=== PATIENT | male | born 2000 | race Two or more races ===

== ENCOUNTER 2024-12-04 01:17 | Inpatient (IN) | payer SELFPAY ==
[~2024-12-04] VITALS: Ht 170.2 cm; Wt 84.1 kg
--- NOTE | 2024-12-04 01:26 | ED.PDOC ---
GI ASSESSMENT HPI Comments 24-year-old male with a past medical history of DM presents to the ED for the chief complaint of 2x episodes of hematemesis, with the associated nausea. Pt states that he was drinking, and notes his last drink was at approx 2000, and has since noted of light red tinged emesis. Patient states his symptoms started at approximately 2200, with no alleviating factors at this time. Pt is A&Ox4 and Ambulatory. Pt denies any /D, Dysuria, Hematuria, SAWANT, Blurry Vision, or any other associated symptoms, or modifiers at this time. PHYSICAL EXAM: General: Awake, alert and oriented. moderate acute distress. Skin: Skin in warm, dry and intact. Appropriate color for ethnicity. HEENT: The head is normocephalic and atraumatic. Conjunctivae are clear without exudates or hemorrhage. Sclera is non-icteric. EOM are intact. No signs of nystagmus. Eyelids are normal in appearance without swelling or lesions. Oral mucosa is pink and moist Neck: The neck is supple with normal range of motion. No JVD. Cardiac: Heart rate and rhythm are normal. No murmurs, gallops, or rubs are auscultated. Respiratory: No signs of respiratory distress. Lung sounds are clear in all lobes bilaterally without rales, rhonchi, or wheezes. Abdominal: Abdomen is soft, non-tender without distention, guarding or rigidity. Bowel sounds are present and normoactive in all four quadrants. Extremities: Upper and lower extremities are atraumatic in appearance without deformity or edema. Neurological: The patient is awake, alert and oriented to person, place, and time with normal speech. Speech is clear. There is no facial asymmetry. Psychiatric: Appropriate mood and affect. Good judgement and insight. REVIEW OF SYSTEMS: General: No fever, no chills, or fatigue HEENT: No sore throat, no earache, no congestion, no neck pain. Cardiac: No chest pain. No palpitations. Lungs: No shortness of breath, no cough. GI: + nausea, + hematemesis, no diarrhea, no constipation, + abdominal pain : No dysuria, frequency, or urgency. No hematuria. Musculoskeletal: No joint pain , no joint swelling, no extremity edema. Skin: No rash, no itching. Neuro: No headache, no dizziness, no weakness Chief Complaint: GI Bleed Time Seen by MD: 01:23 Reviewed Notes: Nurses Notes, Medications, Allergies Allergies: Coded Allergies: NO KNOWN ALLERGIES (Unverified , 12/04/24) Home Meds Reported Medications Omeprazole (Gnp Omeprazole) 20 Mg Tab, 1 TAB PO DAILY, #90 TAB 1 Refill 12/04/24 Information Source: Patient Mode of Arrival: Ambulatory Timing: Hours Duration: Since onset, Hours Prehospital treatment: None Quality: Aching Vomitus: Bloody, Bright Red Bood Stool: Normal Severity: Moderate Recent: None Recent Hx of: None Pain Location: Diffuse Modifying Factors: Exertion Associated sign and symptoms: Nausea, Vomiting, Abdominal Pain Past Medical History PAST MEDICAL HISTORY: Denies Surgical History: Denies all surgeries Family History Family History: Unknown Social History Smoker: Non-Smoker Alcohol: Denies ETOH Use Drugs: Denies Drug Use Lives In: Home Was a procedure done? Was a procedure done?: No GI differential Dx Differential Diagnosis: Appendicitis, Aortic dissection, Bowel Obstruction, Cholangitis, Cholecystitis, Constipation, Diverticular disease, Dysmenorrhea, Gastritis/PUD, Gastroenteritis, GI hemorrhage, Inflammatory BD, Ischemic Bowel, Pancreatitis, Trauma intraabdominal, Urinary Obstruction, UTI, Urolithiasis, Dehydration, Diabetes/ DKA, Drug toxicity, Electrolyte Imbalance, Food Poisoning, Bacterial, Parasitic, Impaction, Ischemic Bowel, Mass, Anemia, Esophageal Varicies, Stress Ulcer, Kidney Stone X-Ray, Labs, Meds, VS Vital Signs Date Time Temp Pulse Resp B/P (MAP) Pulse Ox O2 Delivery O2 Flow Rate FiO2 12/04/24 03:54 114 16 98 Room Air* 0 21 12/04/24 03:31 114 16 98 Room Air 12/04/24 03:31 97.7 114 16 142/80 (100) 98 97.7 12/04/24 01:19 98.2 100 18 142/74 97 98.2 Lab Test 12/04/24 05:27 12/04/24 04:14 12/04/24 03:55 12/04/24 01:49 Range/Units Troponin I High Sensitivity < 3 L </=54 ng/L Urine Color Light-yellow Yellow Urine Clarity Clear Clear Urine pH 6.5 5.0-9.0 Urine Specific Floyd > 1.050 H 1.001-1.035 Urine Protein Negative Negative Urine Ketones 1+ H Negative Urine Blood Negative Negative /uL Urine Nitrite Negative Negative Urine Bilirubin Negative Negative Urine Urobilinogen Normal Negative mg/dL Urine Leukocyte Esterase Negative Negative /uL Urine RBC 4 0 - 3 /hpf Urine Microscopic WBC < 1 0-3 /HPF Urine Squamous Epithelial Cells Few <5 /hpf Urine Bacteria None seen None Seen /hpf Urine Glucose Normal Normal mg/dL Lactic Acid Level 5.5 *H 4.6 *H 0.4-2.0 mmol/L White Blood Count 6.4 4.4-10.8 10^3/uL Red Blood Count 5.30 4.5-5.90 10^6/uL Hemoglobin 16.4 13.5-17.5 g/dL Hematocrit 47.2 41.0-53.0 % Mean Corpuscular Volume 89.0 80.0-100.0 fL Mean Corpuscular Hemoglobin 30.9 28.0-32.0 pg Mean Corpuscular Hemoglobin Concent 34.7 32.0-36.0 g/dL Red Cell Distribution Width 15.4 H 11.8-14.3 % Platelet Count 271 140-450 10^3/uL Mean Platelet Volume 8.4 6.9-10.8 fL Neutrophils (%) (Auto) 59.1 37.0-80.0 % Lymphocytes (%) (Auto) 34.2 10.0-50.0 % Monocytes (%) (Auto) 5.8 0.0-12.0 % Eosinophils (%) (Auto) 0.4 0.0-7.0 % Basophils (%) (Auto) 0.5 0.0-2.0 % Neutrophils # (Auto) 3.8 1.6-8.6 10 ^3/uL Lymphocytes # (Auto) 2.2 0.4-5.4 10 ^3/uL Monocytes # (Auto) 0.4 0-1.3 10 ^3/uL Eosinophils # (Auto) 0 0-0.8 10 ^3/uL Basophils # (Auto) 0 0-0.2 10 ^3/uL Nucleated Red Blood Cells 0.2 % Sodium Level 144 136-145 mmol/L Potassium Level 3.5 3.5-5.1 mmol/L Chloride Level 105 98-107 mmol/L Carbon Dioxide Level 23 20-31 mmol/L Anion Gap 16 H 5-15 Blood Urea Nitrogen 9 9-23 mg/dL Creatinine 0.80 0.700-1.30 mg/dL Glomerular Filtration Rate Calc 126 >90 mL/min BUN/Creatinine Ratio 11.3 10.0-20.0 Serum Glucose 105 74-106 mg/dL Calcium Level 8.7 8.7-10.4 mg/dL Total Bilirubin 0.5 0.2-1.0 mg/dL Aspartate Amino Transferase (AST) 81 H 13-40 U/L Alanine Aminotransferase (ALT) 186 H 7-40 U/L Alkaline Phosphatase 88 46-116 U/L Total Protein 7.0 5.7-8.2 g/dL Albumin 4.7 3.2-4.8 g/dL Current Medications Medications (Trade) Dose Ordered Sig/Zena Route Start Time Stop Time Status Last Admin Sodium Chloride 1,000 ml @ 1,000 mls/hr Q1H ONCE IV 12/04/24 03:00 12/04/24 03:59 DC 12/04/24 03:18 Sodium Chloride 1,000 ml @ 1,000 mls/hr Q1H ONCE IV 12/04/24 05:00 12/04/24 05:59 DC 12/04/24 05:14 Piperacillin Sod/ Tazobactam Sod 100 ml @ 100 mls/hr ONCE ONCE IV 12/04/24 05:00 12/04/24 05:59 DC 12/04/24 05:32 Hydroxyzine Pamoate (Vistaril Oral) 50 mg ONCE ONCE PO 12/04/24 05:00 12/04/24 05:01 DC 12/04/24 05:32 Time of 1ST Reevaluation: 01:54 Reevaluation 1ST: Unchanged Patient Education/Counseling: Diagnosis, Treatment, Need For Follow Up Family Education/Counseling: Diagnosis, Treatment, Need For Follow Up SEPSIS Sepsis Screen Physician Orders Stool Occult Blood (12/04/24 01:43) Ct Ab Pel With Iv Con Only (12/04/24 02:56) Blood Culture (12/04/24 04:51) Chest Xray 1 View (12/04/24 04:51) Electrocardigram (12/04/24 04:51) Vital Signs Date Time Temp Pulse Resp B/P (MAP) Pulse Ox O2 Delivery O2 Flow Rate FiO2 12/04/24 03:54 114 16 98 Room Air* 0 21 12/04/24 03:31 114 16 98 Room Air 12/04/24 03:31 97.7 114 16 142/80 (100) 98 97.7 12/04/24 01:19 98.2 100 18 142/74 97 98.2 Laboratory Tests Test 12/04/24 01:49 12/04/24 03:55 Lactic Acid Level 4.6 mmol/L (0.4-2.0) *H 5.5 mmol/L (0.4-2.0) *H White Blood Count 6.4 10^3/uL (4.4-10.8) Departure 1 Departure Time of Disposition: 05:51 Impression: Primary Impression: Upper GI bleed Additional Impression: Lactic acidemia Disposition: ADMITTED INPATIENT Condition: Stable Comments MDM: [age] year old male presents to the emergency department with vomiting blood. Initial evaluated included thorough history, physical examination and appropriate diagnostic testing. Based on the clinical presentation and diagnostic findings, the patient appears to have upper GI bleed, lactic acidemia. Given the complexity of the case and need for further management patient is being admitted to the hospitalist service for further monitoring, treatment and evaluation. Risks, benefits and alternatives of admission and proposed interventions were discussed with the patient. Patient is in agreement with the plan. Extensive evaluation was performed in attempt to identify or rule out: (See differential diagnosis section) The following tests were ordered, and results were reviewed by me and discussed with patient: (See diagnostic results section) The following test were independently interpreted by me: N/A I reviewed and agreed with the following test results read by other providers: CT abdomen pelvis I reviewed the following notes from the pt's past medical encounters: N/A Additional information was gathered from interviewing the following independent historians: N/A Discussion of management or test interpretation with external physician/other qualified health foster care case manager: N/A Addressed an acute or chronic illness that poses a threat to life or bodily function: GI bleed, lactic acidemia Decision regarding hospitalization or escalation of hospital level of care: Risk and benefits of admission for further treatment of patient's condition was considered. Due to patient's current clinical condition, high risk of decline and poor outcome if discharged and need for further inpatient management and monitoring, patient will be admitted to the hospital. Drug therapy requiring intensive monitoring for toxicity: N/A Parenteral controlled substances: N/A Decision regarding elective major surgery with identified patient or procedure risk factors: N/A Decision regarding emergency major surgery: N/A Decision not to resuscitate or to de-escalate care because of poor prognosis: N/A Diagnosis or treatment significantly limited by social determinants of health: N/A Critical Care Note Critical Care Time?: No Stability Stability form required: No Heart Score Heart Score: Heart Score Response (Comments) Value History N/A 0 EKG N/A 0 Age N/A 0 Risk Factors N/A 0 Troponin N/A 0 Total 0 I personally scribed for MARTINA CLAYTON MD ([email or web address]) on 12/04/24 at 01:26. Electronically submitted by Rafa Wilson ([email or web address]). I personally scribed for MARTINA CLAYTON MD ([email or web address]) on 12/04/24 at 01:29. Electronically submitted by Rafa Wilson ([email or web address]). I personally scribed for MARTINA CLAYTON MD ([email or web address]) on 12/04/24 at 01:33. Electronically submitted by Rafa Wilson ([email or web address]). MARTINA CLAYTON MD Dec 04, 2024 01:26
[2024-12-04] MEDS: PANTOPRAZOLE 40 MG/10 ML VIAL INJ IV ONE ×2 (02:17→07:36)
[2024-12-04 02:28] LABS: Albumin 4.7 g/dL (3.2-4.8); Alkaline Phosphatase 88 U/L (46-116); Anion Gap 16 (5-15); BUN/Creatinine Ratio 11.3 (10.0-20.0); Calcium 8.7 mg/dL (8.7-10.4); Carbon Dioxide 23 mmol/L (20-31); Chloride 105 mmol/L (98-107); Glucose 105 mg/dL (74-106); Sodium 144 mmol/L (136-145); Total Protein 7.0 g/dL (5.7-8.2)
[2024-12-04 02:29] LABS: Bilirubin, Total 0.5 mg/dL (0.2-1.0)
[2024-12-04 02:55] LABS: Alanine Aminotransferase 186 U/L (7-40); Blood Urea Nitrogen 9 mg/dL (9-23); Lactic Acid w/Reflex 4.6 mmol/L (0.4-2.0); Potassium 3.5 mmol/L (3.5-5.1)
[2024-12-04 03:05] LABS: Hematocrit 47.2 % (41.0-53.0); Hemoglobin 16.4 g/dL (13.5-17.5); Mean Corpuscular Hemoglobin 30.9 pg (28.0-32.0); Mean Corpuscular Volume 89.0 fL (80.0-100.0); Nucleated Red Blood Cells % 0.2 %
[2024-12-04] MEDS: SODIUM CHLORIDE 0.9% 1,000 ML IV ONE ×5 (03:18→08:34)
[2024-12-04] MEDS: IOHEXOL 300 MG/ML 100ML BOTTLE IJ ONE (03:43)
[2024-12-04] MEDS: ONDANSETRON HCL 4 MG/2 ML VIAL IV ONE (03:48)
[2024-12-04 03:54] VITALS: PULSE 114; RESP 16; O2SAT 98
--- NOTE | 2024-12-04 03:59 | DVH ---
Exam: CT CT AB PEL WITH IV CON ONLY History: Hemetemesis, epigastric abdominal pain Comparison Study: None Contrast: 100 cc Omnipaque 300 TECHNIQUE: CT imaging of the abdomen and pelvis was obtained following the administration of intraven ous contrast. Coronal and sagittal reformatted images were reviewed. All CT scans at this medical facility are performed using dose modulation techniques as appropriate t o a performed exam including the following: Automated exposure control was utilized; adjustment of th e MA and/or KV according to patient size; and use of iterative reconstruction technique. Radiation Dose Information: CT Dose: CTDI volume is 10.55 mGy. Dose-length product is 3.92 mGy*cm FINDINGS: Imaged portions of the lung bases appear unremarkable. There is a small hiatal hernia. There is diff use hepatic steatosis. Gallbladder, spleen, and adrenal glands appear unremarkable. The pancreas appe ars unremarkable. Kidneys enhance symmetrically without hydronephrosis. The appendix appears normal. No evidence of bowel obstruction or focal bowel wall thickening. No free fluid, free air, or adenopa thy. No suspicious osseous lesion. IMPRESSION: 1. No acute abnormality in the abdomen or pelvis. 2. Hepatic steatosis 3. Small hiatal hernia
[2024-12-04 04:44] LABS: Urine Protein, UAD Negative (Negative)
--- NOTE | 2024-12-04 05:13 | DVH ---
CHEST RADIOGRAPH Indication: epigastric pain Technique: Single frontal view of the chest was obtained COMPARISON: None FINDINGS: Lines and Tubes: None Lungs: Clear Pleura: No effusion. No pneumothorax. Cardiomediastinal contours: Unremarkable Bones: Unremarkable IMPRESSION: No acute disease.
[2024-12-04] MEDS: hydrOXYzine 25 MG TAB or CAP PO ONE (05:32)
[2024-12-04] MEDS: PIPERACILLIN-TAZOB 3.375GM 100 ML IV ONE (05:32)
--- NOTE | 2024-12-04 06:41 | DVHHP2 ---
History of Present Illness Reason for Visit: abd pain and gi bleed History of Present Illness 24-year-old male past medical history diabetes not on medication no surgical history chief complaint patient is states he was vomiting blood last night yesterday around 10:00 p.m. he denies any clots with the vomiting he said he had one episode of vomiting he does admit to drinking alcohol he states his last drink was at 8:00 p.m. last night but patient is not fully on his with his alcohol use he also states he had did some meth in the past last time he did not that was seven months ago but very guarded and not honest about usage patient states epigastric pain that is like a burning sensation no tearing or ripping sensation he denies any fever no chest pain no shortness with the breath when evaluating patient's labs and imaging from ED looks like Vistaril was given Zosyn normal saline Protonix chest x-ray was unremarkable CT scan of the abdomen pelvis was negative showed hepatic steatosis CBC was unremarkable when stable hemoglobin lactate was 6.6 now down to 5.5 AST was 81 ALT was 186 urine shows some ketones with these findings we will admit and ask for GI evaluation for acute upper GI bleed Past Medical History See HPI above Past Surgical History See HPI above Family History Reviewed, non-contributory to the management of this case. Past Social History Patient guarded about his history of alcohol use and drug use states last time drank was last night around 8:00 p.m. and last saw did meth was seven months ago denies smoking Review of Systems Constitutional: No: Fever, Chills, Sweats, Weakness, Malaise, Other Eyes: No: Pain, Vision change, Conjunctivae inflammation, Eyelid inflammation, Other, Redness ENT: No: Ear pain, Ear discharge, Nose pain, Nose discharge, Nose congestion, Mouth pain, Mouth swelling, Throat pain, Throat swelling, Other Respiratory: No: Cough, Dry, Shortness of breath, SOB with excertion, Wheezing, Hemoptysis, Pleuritic Pain, Sputum, Wheezing, Other Cardiovascular: No: Chest Pain, Palpitations, Orthopnea, Paroxysmal Noc. Dyspnea, Edema, Lt Headedness, Other Gastrointestinal: Nausea, Vomiting, Abdominal Pain, Hematochezia; No: Diarrhea, Constipation, Melena, Other Genitourinary: No Dysuria, No Frequency, No Incontinence, No Hematuria, No Retention, No Other Musculoskeletal: No: other, neck pain, shoulder pain, arm pain, back pain, hand pain, leg pain, foot pain Skin: No: Rash, Lesions, Jaundice, Bruising, Other Neurological: No: Weakness, Numbness, Incoordination, Change in speech, Confusion, Seizures, Other Allergies: Coded Allergies: NO KNOWN ALLERGIES (Unverified , 12/04/24) Exam Vital Signs Vital Signs Date Time Temp Pulse Resp B/P (MAP) Pulse Ox O2 Delivery O2 Flow Rate FiO2 12/04/24 03:54 114 16 98 Room Air* 0 21 12/04/24 03:31 97.7 142/80 (100) 97.7 General Appearance: Alert, Oriented X3, Cooperative, No acute distress HEENT: Atraumatic, PERRLA, EOMI, Mucous membr. moist/pink Respiratory: Clear to auscultation, Normal air movement Cardiovascular: Regular rate, Normal S1, Normal S2, No murmurs Abdominal: Normal bowel sounds, Soft, No tenderness, No hepatospenomegaly, No masses Extremities: No clubbing, No cyanosis, No edema, Normal pulses, No tenderness/swelling Skin: No rashes, No breakdown, No significant lesion Neuro: Normal gait, Normal speech, Strength at 5/5 X4 ext, Normal tone, Sensation intact, Cranial nerves 3-12 NL Psych/Mental Status: Mental status NL, Mood NL Labs/Xrays CT scan abdomen pelvis shows hepatic steatosis I reviewed labs, imaging CT scan abdomen pelvis, EKG and all diagnostic studies on this patient from ED records and the medical chart Labs Test 12/04/24 05:27 12/04/24 04:14 12/04/24 03:55 12/04/24 01:49 Range/Units Troponin I High Sensitivity < 3 L </=54 ng/L Urine Color Light-yellow Yellow Urine Clarity Clear Clear Urine pH 6.5 5.0-9.0 Urine Specific Barry > 1.050 H 1.001-1.035 Urine Protein Negative Negative Urine Ketones 1+ H Negative Urine Blood Negative Negative /uL Urine Nitrite Negative Negative Urine Bilirubin Negative Negative Urine Urobilinogen Normal Negative mg/dL Urine Leukocyte Esterase Negative Negative /uL Urine RBC 4 0 - 3 /hpf Urine Microscopic WBC < 1 0-3 /HPF Urine Squamous Epithelial Cells Few <5 /hpf Urine Bacteria None seen None Seen /hpf Urine Glucose Normal Normal mg/dL Lactic Acid Level 5.5 *H 0.4-2.0 mmol/L White Blood Count 6.4 4.4-10.8 10^3/uL Red Blood Count 5.30 4.5-5.90 10^6/uL Hemoglobin 16.4 13.5-17.5 g/dL Hematocrit 47.2 41.0-53.0 % Mean Corpuscular Volume 89.0 80.0-100.0 fL Mean Corpuscular Hemoglobin 30.9 28.0-32.0 pg Mean Corpuscular Hemoglobin Concent 34.7 32.0-36.0 g/dL Red Cell Distribution Width 15.4 H 11.8-14.3 % Platelet Count 271 140-450 10^3/uL Mean Platelet Volume 8.4 6.9-10.8 fL Neutrophils (%) (Auto) 59.1 37.0-80.0 % Lymphocytes (%) (Auto) 34.2 10.0-50.0 % Monocytes (%) (Auto) 5.8 0.0-12.0 % Eosinophils (%) (Auto) 0.4 0.0-7.0 % Basophils (%) (Auto) 0.5 0.0-2.0 % Neutrophils # (Auto) 3.8 1.6-8.6 10 ^3/uL Lymphocytes # (Auto) 2.2 0.4-5.4 10 ^3/uL Monocytes # (Auto) 0.4 0-1.3 10 ^3/uL Eosinophils # (Auto) 0 0-0.8 10 ^3/uL Basophils # (Auto) 0 0-0.2 10 ^3/uL Nucleated Red Blood Cells 0.2 % Sodium Level 144 136-145 mmol/L Potassium Level 3.5 3.5-5.1 mmol/L Chloride Level 105 98-107 mmol/L Carbon Dioxide Level 23 20-31 mmol/L Anion Gap 16 H 5-15 Blood Urea Nitrogen 9 9-23 mg/dL Creatinine 0.80 0.700-1.30 mg/dL Glomerular Filtration Rate Calc 126 >90 mL/min BUN/Creatinine Ratio 11.3 10.0-20.0 Serum Glucose 105 74-106 mg/dL Calcium Level 8.7 8.7-10.4 mg/dL Total Bilirubin 0.5 0.2-1.0 mg/dL Aspartate Amino Transferase (AST) 81 H 13-40 U/L Alanine Aminotransferase (ALT) 186 H 7-40 U/L Alkaline Phosphatase 88 46-116 U/L Total Protein 7.0 5.7-8.2 g/dL Albumin 4.7 3.2-4.8 g/dL SEPSIS Sepsis Screen Date sepsis recognized/suspect: Dec 04, 2024 Time Sepsis recognized/suspect: 332 Recent Procedure: No On Antibiotic Therapy: No Respiratory Rate >20: No Heart Rate >90: Yes Temp<36 C (96.8 F) or >38.3 C: No SBP <90 or MAP <65 mmHG: No New Acute Mental Status Change: No Is the patient on CPAP, BIPAP,: No Physician Orders Stool Occult Blood (12/04/24 01:43) Ct Ab Pel With Iv Con Only (12/04/24 02:56) Blood Culture (12/04/24 04:51) Urinalysis (12/04/24 04:51) Chest Xray 1 View (12/04/24 04:51) Electrocardigram (12/04/24 04:51) Sodium Chloride 0.9% (12/04/24 05:00) Vital Signs Date Time Temp Pulse Resp B/P (MAP) Pulse Ox O2 Delivery O2 Flow Rate FiO2 12/04/24 03:54 114 16 98 Room Air* 0 21 12/04/24 03:31 114 16 98 Room Air 12/04/24 03:31 97.7 114 16 142/80 (100) 98 97.7 12/04/24 01:19 98.2 100 18 142/74 97 98.2 Laboratory Tests Test 12/04/24 01:49 12/04/24 03:55 Lactic Acid Level 4.6 mmol/L (0.4-2.0) *H 5.5 mmol/L (0.4-2.0) *H White Blood Count 6.4 10^3/uL (4.4-10.8) Medications Medications Dose Ordered Sig/Zena Route Start Time Stop Time Status Last Admin Dose Admin Hydroxyzine Pamoate 50 mg ONCE ONCE PO 12/04/24 05:00 12/04/24 05:01 DC 12/04/24 05:32 50 MG Piperacillin Sod/ Tazobactam Sod 100 ml @ 100 mls/hr ONCE ONCE IV 12/04/24 05:00 12/04/24 05:59 DC 12/04/24 05:32 100 MLS/HR Sodium Chloride 1,000 ml @ 1,000 mls/hr Q1H ONCE IV 12/04/24 03:00 12/04/24 03:59 DC 12/04/24 03:18 1,000 MLS/HR Sodium Chloride 1,000 ml @ 1,000 mls/hr Q1H ONCE IV 12/04/24 05:00 12/04/24 05:59 DC 12/04/24 05:14 1,000 MLS/HR Assessment/Plan Assessment/Plan acute upper gi bleed with stable hemoglobin ordered us abd clr liquid diet for now ivf ordered protonix gi consult fu results monitor hemoglobin acute acholic keto acidosis related to alcohol use vs gi bleed hemoglobin stable cont iv hydration ordered bmp in am ordered repeat lactic ordered Ativan as needed acute etoh use ordered etoh level ordered Ativan as needed ordered Seizure precautions monitor for etoh withdrawal ordered banana bag pt states go to aa classess Encourage abstinence acute Intractable abdominal pain epigastric pain ordered Protonix morphine Zofran ordered abd us fu results Acute dehydration urine with ketones Continue IV fluids Acute transaminitis likely from etoh abuse vs hepatitic steatosis ordered us liver fu results avoid liver toxic drugs monitor for confusion type 2 dm monitor glucose fen/ppx clr liquid diet Protonix IV fluids SCDs no dvt ppx since pt is ambulatory and have gi bleed plan admit to medicine Plan discussed with: Patient Date of Service: Dec 04, 2024 Billing Provider: ARIANA PARK DNP Common Visit Codes: [id number] INP/OBS CARE (HIGH) ARIANA PARK DNP Dec 04, 2024 06:41
[2024-12-04] MEDS ORDERED: NITROGLYCERIN 0.4 MG SL TAB SL PRN (06:45)
[2024-12-04] MEDS ORDERED: MORPHINE SULFATE INJ 2 MG/ml SYRG IV PRN (06:45)
[2024-12-04] MEDS: SODIUM CHLORIDE 0.9% 1,000 ML IV SCH (06:45)
[2024-12-04] MEDS ORDERED: DOCUSATE SOD 100 MG CAP PO PRN (06:45)
[2024-12-04] MEDS ORDERED: ONDANSETRON HCL 4 MG/2 ML VIAL IV PRN (06:45)
--- NOTE | 2024-12-04 07:49 | DVH ---
INDICATION: epigastric abd pain and transaminitis TECHNIQUE: Multiple real-time sonographic images of the abdomen were obtained. COMPARISON: CT CT AB PEL WITH IV CON ONLY on DOS: 12/04/24 FINDINGS: The liver is increased in echogenicity. The liver measures 16.1 cm. No intrahepatic biliar y ductal dilatation is noted. The gallbladder wall measures 0.2 cm and is unremarkable. No gallstones or sludge is seen. The com mon duct measures 0.5 cm and is unremarkable. No pericholecystic fluid is noted. Negative sonographi c Dodge's sign. The right kidney measures 10.4 cm. No hydronephrosis. The pancreas is not well visualized due to obscuration from bowel gas. The visualized portions of the IVC and aorta are grossly unremarkable. IMPRESSION: 1. Hepatic steatosis. 2. No gallstones or acute cholecystitis.
[2024-12-04 08:20] LABS: Lactic Acid w/Reflex 5.2 mmol/L (0.4-2.0)
--- NOTE | 2024-12-04 13:44 | DVHINCON2 ---
GI Consult Consult Note GI consult note Date of Consultation: 12/04/2024 Chief Complaint: Acute upper GI bleed Referring Physician: Jimmie LUQUE H&P: 24-year-old Sami-speaking male male presented to the ER with complains of epigastric abdominal pain and vomiting blood. Translation by Roberta VIEIRA. Patient admits to improvement in abdominal pain. No nausea vomiting now. Had one episode of red blood in his vomitus. Denies melena or red blood in stool. Admits to heavy alcohol use and was drinking all day. Possible history of using methamphetamine also. No EGD in past Past Medical History: Dm not on medications Past Surgical History: Denies Social History: NO smoking, heavy drinking ETOH and history of meth use seven months ago Family History: Noncontributory Review of Systems: Constitutional: no fever, chill, weight loss HEENT: no eye pain, no hearing loss, no oral lesion, no scleral icterus Heart: no chest pain, no chest pressure Lung: no cough, no dyspnea with exertion Abdomen: see HPI Physical exam: General: NAD, AAOX3 Chest: lung sanders clear to auscultation Heart: RRR, no murmur Abdomen: non-distended, no tenderness to palpation, +BS Labs: Labs Test 12/04/24 07:26 12/04/24 05:27 12/04/24 04:14 12/04/24 01:49 Range/Units Lactic Acid Level 5.2 *H 0.4-2.0 mmol/L Plasma/Serum Blood Alcohol 78.3 H <10 mg/dL Troponin I High Sensitivity < 3 L </=54 ng/L Urine Color Light-yellow Yellow Urine Clarity Clear Clear Urine pH 6.5 5.0-9.0 Urine Specific [place] > 1.050 H 1.001-1.035 Urine Protein Negative Negative Urine Ketones 1+ H Negative Urine Blood Negative Negative /uL Urine Nitrite Negative Negative Urine Bilirubin Negative Negative Urine Urobilinogen Normal Negative mg/dL Urine Leukocyte Esterase Negative Negative /uL Urine RBC 4 0 - 3 /hpf Urine Microscopic WBC < 1 0-3 /HPF Urine Squamous Epithelial Cells Few <5 /hpf Urine Bacteria None seen None Seen /hpf Urine Glucose Normal Normal mg/dL White Blood Count 6.4 4.4-10.8 10^3/uL Red Blood Count 5.30 4.5-5.90 10^6/uL Hemoglobin 16.4 13.5-17.5 g/dL Hematocrit 47.2 41.0-53.0 % Mean Corpuscular Volume 89.0 80.0-100.0 fL Mean Corpuscular Hemoglobin 30.9 28.0-32.0 pg Mean Corpuscular Hemoglobin Concent 34.7 32.0-36.0 g/dL Red Cell Distribution Width 15.4 H 11.8-14.3 % Platelet Count 271 140-450 10^3/uL Mean Platelet Volume 8.4 6.9-10.8 fL Neutrophils (%) (Auto) 59.1 37.0-80.0 % Lymphocytes (%) (Auto) 34.2 10.0-50.0 % Monocytes (%) (Auto) 5.8 0.0-12.0 % Eosinophils (%) (Auto) 0.4 0.0-7.0 % Basophils (%) (Auto) 0.5 0.0-2.0 % Neutrophils # (Auto) 3.8 1.6-8.6 10 ^3/uL Lymphocytes # (Auto) 2.2 0.4-5.4 10 ^3/uL Monocytes # (Auto) 0.4 0-1.3 10 ^3/uL Eosinophils # (Auto) 0 0-0.8 10 ^3/uL Basophils # (Auto) 0 0-0.2 10 ^3/uL Nucleated Red Blood Cells 0.2 % Sodium Level 144 136-145 mmol/L Potassium Level 3.5 3.5-5.1 mmol/L Chloride Level 105 98-107 mmol/L Carbon Dioxide Level 23 20-31 mmol/L Anion Gap 16 H 5-15 Blood Urea Nitrogen 9 9-23 mg/dL Creatinine 0.80 0.700-1.30 mg/dL Glomerular Filtration Rate Calc 126 >90 mL/min BUN/Creatinine Ratio 11.3 10.0-20.0 Serum Glucose 105 74-106 mg/dL Calcium Level 8.7 8.7-10.4 mg/dL Total Bilirubin 0.5 0.2-1.0 mg/dL Aspartate Amino Transferase (AST) 81 H 13-40 U/L Alanine Aminotransferase (ALT) 186 H 7-40 U/L Alkaline Phosphatase 88 46-116 U/L Total Protein 7.0 5.7-8.2 g/dL Albumin 4.7 3.2-4.8 g/dL Imaging: CT abdomen pelvis IMPRESSION: 1. No acute abnormality in the abdomen or pelvis. 2. Hepatic steatosis 3. Small hiatal hernia Abdominal ultrasound IMPRESSION: 1. Hepatic steatosis. 2. No gallstones or acute cholecystitis. Assessment: GI bleed Abdominal pain improving Heavy alcohol use Plan: Discussed with Dr. Parker Monitor labs Protonix and Carafate DC alcohol discussed extensively We will continue to follow patient GI on standby if any active bleeding Thank you for this consult Date of Service: Dec 04, 2024 Billing Provider: TITUS WALLACE Common Visit Codes: CONSULT ONLY Consultation Codes: [id number] CONSULT <60MIN TITUS WALLACE Dec 04, 2024 13:44
--- NOTE | 2024-12-04 15:04 | DVHINCON2 ---
Date of service: Dec 04, 2024 Allergies: Coded Allergies: NO KNOWN ALLERGIES (Unverified , 12/04/24) Current Medications Current Medications Medications (Trade) Dose Ordered Sig/Zena Route PRN Reason Start Time Stop Time Status Last Admin Pantoprazole Sodium (Protonix) 40 mg BID IV 12/04/24 22:00 Sodium Chloride 1,000 ml @ 120 mls/hr Q8H20M IV 12/04/24 06:45 Ondansetron HCl (Zofran) 4 mg Q4HP PRN IV NAUSEA / VOMITING 12/04/24 06:45 Docusate Sodium (Colace Capsule) 100 mg BIDPRN PRN PO FOR CONSTIPATION 12/04/24 06:45 Morphine Sulfate 2 mg Q4HPRN PRN IV SEVERE PAIN (7-10 PAIN SCALE) 12/04/24 06:45 Nitroglycerin (Ntrostat Sublingual) 0.4 mg Q5MINP PRN SL FOR CHEST PAIN 12/04/24 06:45 Folic Acid 1 mg/ Magnesium Sulfate 8 meq/ Multivitamins 10 ml/Thiamine HCl 100 mg/Sodium Chloride 1,013.2 ml @ 126.247 mls/hr DAILY@1800 INJ 12/04/24 18:00 Sucralfate (Carafate Susp) 1 gm TID@0600,1130,2200 PO 12/04/24 22:00 Vital Signs Vital Signs Date Time Temp Pulse Resp B/P (MAP) Pulse Ox O2 Delivery O2 Flow Rate FiO2 12/04/24 14:45 97.9 95 16 130/74 (92) 97 97.9 12/04/24 07:25 Room Air 12/04/24 03:54 0 21 Labs/Diagnostic Data Labs Test 12/04/24 13:44 12/04/24 07:26 12/04/24 05:27 12/04/24 04:14 Range/Units Lactic Acid Level 1.5 0.4-2.0 mmol/L Plasma/Serum Blood Alcohol 78.3 H <10 mg/dL Troponin I High Sensitivity < 3 L </=54 ng/L Urine Color Light-yellow Yellow Urine Clarity Clear Clear Urine pH 6.5 5.0-9.0 Urine Specific [place] > 1.050 H 1.001-1.035 Urine Protein Negative Negative Urine Ketones 1+ H Negative Urine Blood Negative Negative /uL Urine Nitrite Negative Negative Urine Bilirubin Negative Negative Urine Urobilinogen Normal Negative mg/dL Urine Leukocyte Esterase Negative Negative /uL Urine RBC 4 0 - 3 /hpf Urine Microscopic WBC < 1 0-3 /HPF Urine Squamous Epithelial Cells Few <5 /hpf Urine Bacteria None seen None Seen /hpf Urine Glucose Normal Normal mg/dL Test 12/04/24 01:49 Range/Units White Blood Count 6.4 4.4-10.8 10^3/uL Red Blood Count 5.30 4.5-5.90 10^6/uL Hemoglobin 16.4 13.5-17.5 g/dL Hematocrit 47.2 41.0-53.0 % Mean Corpuscular Volume 89.0 80.0-100.0 fL Mean Corpuscular Hemoglobin 30.9 28.0-32.0 pg Mean Corpuscular Hemoglobin Concent 34.7 32.0-36.0 g/dL Red Cell Distribution Width 15.4 H 11.8-14.3 % Platelet Count 271 140-450 10^3/uL Mean Platelet Volume 8.4 6.9-10.8 fL Neutrophils (%) (Auto) 59.1 37.0-80.0 % Lymphocytes (%) (Auto) 34.2 10.0-50.0 % Monocytes (%) (Auto) 5.8 0.0-12.0 % Eosinophils (%) (Auto) 0.4 0.0-7.0 % Basophils (%) (Auto) 0.5 0.0-2.0 % Neutrophils # (Auto) 3.8 1.6-8.6 10 ^3/uL Lymphocytes # (Auto) 2.2 0.4-5.4 10 ^3/uL Monocytes # (Auto) 0.4 0-1.3 10 ^3/uL Eosinophils # (Auto) 0 0-0.8 10 ^3/uL Basophils # (Auto) 0 0-0.2 10 ^3/uL Nucleated Red Blood Cells 0.2 % Sodium Level 144 136-145 mmol/L Potassium Level 3.5 3.5-5.1 mmol/L Chloride Level 105 98-107 mmol/L Carbon Dioxide Level 23 20-31 mmol/L Anion Gap 16 H 5-15 Blood Urea Nitrogen 9 9-23 mg/dL Creatinine 0.80 0.700-1.30 mg/dL Glomerular Filtration Rate Calc 126 >90 mL/min BUN/Creatinine Ratio 11.3 10.0-20.0 Serum Glucose 105 74-106 mg/dL Calcium Level 8.7 8.7-10.4 mg/dL Total Bilirubin 0.5 0.2-1.0 mg/dL Aspartate Amino Transferase (AST) 81 H 13-40 U/L Alanine Aminotransferase (ALT) 186 H 7-40 U/L Alkaline Phosphatase 88 46-116 U/L Total Protein 7.0 5.7-8.2 g/dL Albumin 4.7 3.2-4.8 g/dL Assessment [id number] AFEBRILE VSS RUQ PAIN LESS NO ACTIVE BLEED NO N/V DRINKS ALCOHOL ABD SOFT NON ACUTE NO ACTIVE BLEED NO INDICATION FOR EMERGENT SURGERY CONTINUE CLOSE OBSERVATION GI EVAL ONGOING FOR POSSIBLE EGD INDICATED Plan discussed with: Patient, Other MIESHA AGUILAR MD Dec 04, 2024 15:04
--- NOTE | 2024-12-04 15:45 | DVHINCON2 ---
DATE OF CONSULTATION: 12/04/2024 HISTORY OF PRESENT ILLNESS: This patient is 24 years old coming in with right upper quadrant pain. He had one vomiting episode with bleeding yesterday but not today. He does take alcohol and this happened after taking alcohol. No fever or chills. No hematemesis or melena today. No bleeding per rectum today. PAST MEDICAL HISTORY: No hypertension. No diabetes. PAST SURGICAL HISTORY: Nothing significant. PHYSICAL EXAMINATION: VITAL SIGNS: Afebrile. Stable signs. HEENT: No evidence of pallor, cyanosis, or jaundice. NECK: Supple and nontender with no thyromegaly or lymphadenopathy. CHEST AND LUNGS: Clear. HEART: Within normal limits. ABDOMEN: Soft. Minimally tender. No rebound. EXTREMITIES: Unremarkable. NEUROLOGICAL: Intact. CLINICAL IMPRESSION: Upper GI bleed. Not actively bleeding at this time. No indication for acute surgical intervention. PLAN: Have GI evaluation done and possible EGD. MD ROMAN Sánchez/KINA TID: [id number] RECEIPT: [id number] cc: ALEYDA Robertson
[2024-12-04 17:18] VITALS: BP 135/69; PULSE 83; RESP 17; TEMP 98.5; O2SAT 96
[2024-12-04] MEDS: FOLIC ACID 1 MG, MAGNESIUM SULF SDV 50% 8 MEQ, MULTIPLE VITAMIN 10 ML, THIAMINE INJ 100... INJ SCH (17:46)
[2024-12-04] MEDS ORDERED: OMEP20TA PO (18:33)
[2024-12-04 21:18] VITALS: BP 123/77; PULSE 68; RESP 18; TEMP 98.5; O2SAT 99
[2024-12-04 21:57] LABS: Amphetamine Screen, Urine Neg (NEGATIVE); Barbiturate Scree,Urine Neg (NEGATIVE); Benzodiazephine Screen, Urine Neg (NEGATIVE); Cannabinoid Screen, Urine Neg (NEGATIVE); Cocaine Screen, Urine Neg (NEGATIVE); Opiate Scree,Urine Neg (NEGATIVE); Phencyclidine Screen, Urine Neg (NEGATIVE)
[2024-12-04] MEDS: PANTOPRAZOLE 40 MG/10 ML VIAL INJ IV SCH (21:58)
[2024-12-04] MEDS: SUCRALFATE 1 GM/10 ML ORAL SUSP PO SCH (21:59)
[2024-12-05] VITALS (9 sets, daily range): BP systolic 116–131; BP diastolic 56–91; PULSE 59–83; RESP 14–98; TEMP 97.6–98.1; O2SAT 96–99
[2024-12-05 09:04] LABS: Hematocrit 48.0 % (41.0-53.0); Hemoglobin 16.8 g/dL (13.5-17.5); Mean Corpuscular Hemoglobin 31.9 pg (28.0-32.0); Mean Corpuscular Volume 91.3 fL (80.0-100.0); Nucleated Red Blood Cells % 0.4 %
[2024-12-05 09:18] LABS: Albumin 4.1 g/dL (3.2-4.8); Alkaline Phosphatase 78 U/L (46-116); Anion Gap 12 (5-15); Carbon Dioxide 22 mmol/L (20-31); Chloride 104 mmol/L (98-107); Sodium 138 mmol/L (136-145); Total Protein 6.3 g/dL (5.7-8.2)
[2024-12-05 09:19] LABS: Alanine Aminotransferase 135 U/L (7-40); BUN/Creatinine Ratio 7.4 (10.0-20.0); Bilirubin, Total 1.3 mg/dL (0.2-1.0); Blood Urea Nitrogen < 5 mg/dL (9-23); Calcium 8.6 mg/dL (8.7-10.4); Glucose 70 mg/dL (74-106); Potassium 3.4 mmol/L (3.5-5.1)
[2024-12-05] MEDS ORDERED: ONDANSETRON HCL 4 MG/2 ML VIAL IV PRN (09:30)
[2024-12-05] MEDS: MULTIPLE VITAMIN TAB PO SCH (10:00)
[2024-12-05] MEDS: THIAMINE 100mg/ml INJ (200mg/2ml VIAL) IV ONE (13:21)
[2024-12-05] MEDS: FOLIC ACID 1 MG in D5W 5% 50 ML INJ ONE (14:45)
[2024-12-05 14:54] LABS: INR 1.11 (0.9-1.15); Partial Thromboplastin Time 27.3 SEC (24.5-34.5); Prothrombin Time 11.6 sec (9.3-11.8)
[2024-12-05] MEDS ORDERED: LIDOCAINE 2% (LOCAL ANESTH.) PF 5ml SDV ONE (16:09)
[2024-12-05] MEDS ORDERED: PROPOFOL 10 MG/ML 20 ML IV ONE ×3 (16:09→16:19)
--- NOTE | 2024-12-05 16:36 | DVHOP2 ---
Operative Report DATE OF OPERATION: 12/05/24 PROCEDURE: Upper Endoscopy with biopsy. PREOPERATIVE INDICATION: The patient is a 24 -year-old male undergoing endoscopy for upper GI bleed nausea and vomiting POSTOPERATIVE DIAGNOSES: 1. 3 cm sliding-type hiatal hernia with the acute grade B linear erosive esophagitis with linear ulcers extending into the distal 8 cm of the esophagus 2. Mild gastritis otherwise normal examination up to the 2nd and 3rd part of the duodenum with no active bleeding at this time PROCEDURE PERFORMED BY: Jazmin Parker GI NURSE: Radha SCOPE: Olympus videoendoscope. ASA CLASS: 2. PREOPERATIVE MEDICATIONS: Mac sedationOracio PROCEDURE IN DETAIL: After obtaining an informed consent, the patient was placed on left lateral decubitus position. The patient was then sedated with the above medications. A bite block was placed between his teeth. The endoscope was then passed through the oropharynx, into the esophagus, and through the stomach and pylorus up to the second and third part of the duodenum. The endoscope was then withdrawn. The 2nd and third part of the duodenum and the duodenal bulb were normal. The pre-pyloric area and antrum showed mild gastritis On retroflexion the fundus and cardia were normal. Duodenal and gastric biopsies were obtained. The endoscope was then withdrawn into distal esophagus where he had a 3 cm sliding-type hiatal hernia with a grade B linear erosive esophagitis There were linear ulcers extending into the distal esophagus for about 8 cm from which biopsies were obtained. The remaining proximal esophagus and oropharynx were unremarkable. There was no fresh or old blood in the upper GI tract The patient tolerated the procedure well without difficulty. COMPLICATIONS : None SPECIMENS: Duodenal biopsies Gastric biopsies DISPOSITION: Transfer back to the floor Stable PLAN: 1. Await for biopsy result 2. Will place pt on Protonix 40 mg bid p.o. 3. Carafate 1 g p.o. 4 times a day 4. DC aspirin NSAIDs smoking alcohol 5. Outpatient follow up with me in 4-6 weeks to review results and discuss further management JAZMIN PARKER MD Dec 05, 2024 16:36
[2024-12-05] MEDS: POTASSIUM CHLORIDE 20 MEQ, LIDOCAINE 1% (LOCAL ANESTH.) 2 ML in SODIUM CHL 0.9% 100 ML IV ONE (17:16)
--- NOTE | 2024-12-05 17:46 | DVHPNRES ---
Progress Note Date Seen: Dec 05, 2024 Resident Creating Document: FORREST SENIOR RESIDENT Medical Necessity Reason Pt with a Central, PICC or Fol: No Subjective Review of Systems 23-year-old syriac speaking male with no past medical or surgical history came with complaint of vomiting blood last night yesterday around 10:00 p.m. he had 1 episode of vomiting. He denies passing out or abdominal pain. The patient says he has been drinking heavily for the past month. There was no associated fever chest pain or shortness of breath Previous hospitalization: None PMHx:None PSHx:None Family history: Grandmother with diabetes Social history:heavy alcohol use for the past month, denies smoking and drug abuse Home medication: None Allergic history:None General: patient denies fever, fatigue, weaknes, sweating, any recent changes in appetite and weight HEENT: No headaches, visiual changes, hearing loss, tinnitus, nasal congestion and discharge, and sore throat. Cardiovascular: Denies chest pain, palpitations, dyspnea on exertion, orthopnea, or claudication. Respiratory: No cough, and wheezing. Gastrointestinal: Complaints of mild abdominal pain. Denies flatulence, bloating, diarrhea, constipation, change in stool, or blood in stool. Genitourinary: No dysuria, hematuria, discharge, frequency, urgency, nocturia, incontinence, and urinary retention. Endocrine: No heat or cold intolerance, polydipsia, polyuria, and polyphagia. Neurological: No dizziness, extremity weakness and numbness, tremors, gait disturbance, seizures, and memory impairment. Psychiatric: Denies depression, anxiety,or insomnia. Musculoskeletal: Denies neck pain, stiffness and swelling, back pain, muscle weakness, joint pain, stiffness, swelling, or limited range of motion. Skin: No rashes, itching, skin lesion, changes in hair, nail, skin texture and breast. Hematologic/Lymphatic: Denies easy bruising, bleeding tendencies, or lymph node enlargement. Saw the patient at bedside. Patient c/o mild abdominal pain but feels much better. Objective vital signs Vital Sign Date Time Temp Pulse Resp B/P (MAP) Pulse Ox O2 Delivery O2 Flow Rate FiO2 12/05/24 08:40 97.6 59 98 116/78 (91) 98 97.6 12/05/24 07:30 Room Air* 0 21 Total Intake and Output 12/04/24 12/04/24 12/05/24 15:00 23:00 07:00 Intake Total 1100 ml 0 ml Output Total 100 ml Balance 1100 ml -100 ml medications Current Medications Medications Dose Ordered Sig/Zena Route Start Time Stop Time Status Last Admin Dose Admin Pantoprazole Sodium 40 mg BID IV 12/04/24 22:00 12/04/24 21:58 40 MG Sodium Chloride 1,000 ml @ 120 mls/hr Q8H20M IV 12/04/24 06:45 12/05/24 07:31 120 MLS/HR Ondansetron HCl 4 mg Q4HP PRN IV 12/04/24 06:45 Docusate Sodium 100 mg BIDPRN PRN PO 12/04/24 06:45 Morphine Sulfate 2 mg Q4HPRN PRN IV 12/04/24 06:45 Nitroglycerin 0.4 mg Q5MINP PRN SL 12/04/24 06:45 Folic Acid 1 mg/ Magnesium Sulfate 8 meq/ Multivitamins 10 ml/Thiamine HCl 100 mg/Sodium Chloride 1,013.2 ml @ 126.247 mls/hr DAILY@1800 INJ 12/04/24 18:00 12/04/24 17:46 126.247 MLS/HR Sucralfate 1 gm TID@0600,1130,2200 PO 12/04/24 22:00 12/05/24 06:58 1 GM Multivitamins 1 tab DAILY PO 12/05/24 10:00 UNV Ondansetron HCl 4 mg Q6HPRN PRN IV 12/05/24 09:30 UNV Examination General Appearance: Alert, Oriented X3, Cooperative, No acute distress HEENT: Atraumatic, PERRLA, EOMI, Mucous membrane moist/pink Respiratory: Clear to auscultation, Normal air movement Cardiovascular: Regular rate, Normal S1, Normal S2, No murmurs, no chest wall tenderness Abdominal: Tenderness in the epigastric region. Normal bowel sounds, Soft, No hepatospenomegaly, No masses Extremities: No clubbing, No cyanosis, No edema, Normal pulses, No tenderness/swelling Skin: No rashes, No breakdown, No significant lesion Neuro: Normal gait, Normal speech, Strength at 5/5 X4 ext, Normal tone, Sensation intact, Cranial nerves 3-12 NL, Reflexes 2+ Psych/Mental Status: Mental status NL, Mood NL laboratory and microbiology Laboratory Tests 12/05/24 07:49 Test 12/05/24 07:49 Range/Units Serum Glucose 70 L 74-106 mg/dL Microbiology Date/Time Source Procedure Growth Status 12/04/24 05:29 Blood Blood Culture - Preliminary NO GROWTH AFTER 24 HOURS OF INCUBATION. Resulted Problem List/Assessment/Plan Problem List/Assessment/Plan Acute abdominal pain, likely due to gastritis Gastritis, likely due to alcohol use disorder Possible Esophageal tear/Peptic ulcer/Gastritis Alcohol use disorder * Serum alcohol 78, negative urine drug screen * CT abdomen and uterus the abdomen shows hepatic steatosis * On sucralfate, Protonix * GI evaluation- possible EGD DIET: Regular diet GI PROPHYLAXIS:: Protonix BOWEL REGIMEN: Colace CODE STATUS: Goal of care discussed for more than 18 minutes, full code DISPOSITION: Med/surge Patient's status and plan discussed with the patient. Case discussed with Dr. Chavez. Plan discussed with: Patient Date of Service: Dec 05, 2024 Billing Provider: PIPER CHAVEZ MD Common Visit Codes: [id number] INP/OBS CARE(HIGH) FORREST SENIOR RESIDENT Dec 05, 2024 11:48 PIPER CHAVEZ MD Dec 07, 2024 21:15
[2024-12-05] MEDS ORDERED: MAALOX PLUS or MAALOX 30 ML PO PRN (19:00)
[2024-12-06] VITALS (9 sets, daily range): BP systolic 115–130; BP diastolic 71–88; PULSE 58–84; RESP 16–20; TEMP 97.2–98.6; O2SAT 97–99
[2024-12-06 08:08] LABS: Hematocrit 48.3 % (41.0-53.0); Hemoglobin 17.2 g/dL (13.5-17.5); Mean Corpuscular Hemoglobin 31.6 pg (28.0-32.0); Mean Corpuscular Volume 88.7 fL (80.0-100.0); Nucleated Red Blood Cells % 0.1 %
[2024-12-06 08:15] LABS: Albumin 4.5 g/dL (3.2-4.8); Alkaline Phosphatase 80 U/L (46-116); Anion Gap 11 (5-15); BUN/Creatinine Ratio 10.1 (10.0-20.0); Calcium 9.0 mg/dL (8.7-10.4); Carbon Dioxide 25 mmol/L (20-31); Chloride 104 mmol/L (98-107); Glucose 99 mg/dL (74-106); Sodium 140 mmol/L (136-145); Total Protein 6.6 g/dL (5.7-8.2)
[2024-12-06 08:19] LABS: Bilirubin, Total 0.6 mg/dL (0.2-1.0)
[2024-12-06 08:21] LABS: Alanine Aminotransferase 141 U/L (7-40); Blood Urea Nitrogen 8 mg/dL (9-23); Potassium 3.4 mmol/L (3.5-5.1)
[2024-12-06] MEDS: THIAMINE HCL 100 MG TAB PO SCH (08:49)
[2024-12-06] MEDS: FOLIC ACID 1 MG TAB PO SCH (08:50)
[2024-12-06] MEDS: MAGNESIUM OXIDE 400 MG TAB PO SCH (08:50)
[2024-12-06] MEDS: MULTIPLE VITAMIN TAB PO SCH (08:50)
--- NOTE | 2024-12-06 11:42 | DVHPN2 ---
Progress Note - Dictate Date Seen: Dec 06, 2024 Medical Necessity Reason Pt with a Central, PICC or Fol: No Subjective No new complaints, sleeping comfortably EGD showed hiatal hernia with grade B linear erosive esophagitis and esophageal ulcers There was no active bleeding LFTs were stable Lipase was mildly elevated to 60 vital signs Vital Sign Date Time Temp Pulse Resp B/P (MAP) Pulse Ox O2 Delivery O2 Flow Rate FiO2 12/06/24 09:00 97.2 63 20 118/71 (87) 97 97.2 12/05/24 20:00 Room Air* 0 21 Total Intake and Output 12/05/24 12/05/24 12/06/24 15:00 23:00 07:00 Intake Total 240 ml 1672 ml Output Total 1100 ml 500 ml Balance -860 ml 1172 ml medications Current Medications Medications Dose Ordered Sig/Zena Route Start Time Stop Time Status Last Admin Dose Admin Pantoprazole Sodium 40 mg BID IV 12/04/24 22:00 12/06/24 08:51 40 MG Sodium Chloride 1,000 ml @ 120 mls/hr Q8H20M IV 12/04/24 06:45 12/06/24 00:07 120 MLS/HR Docusate Sodium 100 mg BIDPRN PRN PO 12/04/24 06:45 Morphine Sulfate 2 mg Q4HPRN PRN IV 12/04/24 06:45 Nitroglycerin 0.4 mg Q5MINP PRN SL 12/04/24 06:45 Sucralfate 1 gm TID@0600,1130,2200 PO 12/04/24 22:00 12/06/24 05:15 1 GM Multivitamins 1 tab DAILY PO 12/05/24 10:00 Ondansetron HCl 4 mg Q6HPRN PRN IV 12/05/24 09:30 Al Hydrox/Mg Hydrox/Simethicone 15 ml Q8HP PRN PO 12/05/24 19:00 Folic Acid 1 mg DAILY PO 12/06/24 10:00 12/06/24 08:50 1 MG Multivitamins 1 tab DAILY PO 12/06/24 10:00 12/06/24 08:50 1 TAB Magnesium Oxide 400 mg DAILY PO 12/06/24 10:00 12/06/24 08:50 400 MG Thiamine HCl 100 mg DAILY PO 12/06/24 10:00 8/9/25 08:49 100 MG objective General: NAD, AAOX3 Chest: lung sanders clear to auscultation Heart: RRR, no murmur Abdomen: non-distended, no tenderness to palpation, +BS laboratory and microbiology Laboratory Tests 12/06/24 07:12 Test 12/06/24 07:12 Range/Units Serum Glucose 99 74-106 mg/dL Problems(with codes): (1) Alcohol abuse (2) Hiatal hernia with gastroesophageal reflux disease and esophagitis (3) Pancreatitis (4) Lactic acidemia (5) Upper GI bleed Prognosis Plan Protonix 40 mg p.o. twice a day Carafate 1 g p.o. twice a day Advance diet as tolerated Discontinue alcohol Discharge planning as per hospitalist Patient appears stable from a GI point of view Patient will likely need to be maintained on Prilosec OTC or an equivalent PPI upon discharge Plan discussed with: Other (Nurse) JAZMIN AGUILAR MD Dec 06, 2024 11:42
--- NOTE | 2024-12-06 11:47 | DVHPN2 ---
Progress Note Date Seen: Dec 06, 2024 Medical Necessity Reason Pt with a Central, PICC or Fol: No Objective vital signs Vital Sign Date Time Temp Pulse Resp B/P (MAP) Pulse Ox O2 Delivery O2 Flow Rate FiO2 12/06/24 09:00 97.2 63 20 118/71 (87) 97 97.2 12/05/24 20:00 Room Air* 0 21 Total Intake and Output 12/05/24 12/05/24 12/06/24 15:00 23:00 07:00 Intake Total 240 ml 1672 ml Output Total 1100 ml 500 ml Balance -860 ml 1172 ml medications Current Medications Medications Dose Ordered Sig/Zena Route Start Time Stop Time Status Last Admin Dose Admin Pantoprazole Sodium 40 mg BID IV 12/04/24 22:00 12/06/24 08:51 40 MG Sodium Chloride 1,000 ml @ 120 mls/hr Q8H20M IV 12/04/24 06:45 12/06/24 00:07 120 MLS/HR Docusate Sodium 100 mg BIDPRN PRN PO 12/04/24 06:45 Morphine Sulfate 2 mg Q4HPRN PRN IV 12/04/24 06:45 Nitroglycerin 0.4 mg Q5MINP PRN SL 12/04/24 06:45 Sucralfate 1 gm TID@0600,1130,2200 PO 12/04/24 22:00 12/06/24 05:15 1 GM Multivitamins 1 tab DAILY PO 12/05/24 10:00 Ondansetron HCl 4 mg Q6HPRN PRN IV 12/05/24 09:30 Al Hydrox/Mg Hydrox/Simethicone 15 ml Q8HP PRN PO 12/05/24 19:00 Folic Acid 1 mg DAILY PO 12/06/24 10:00 12/06/24 08:50 1 MG Multivitamins 1 tab DAILY PO 12/06/24 10:00 12/06/24 08:50 1 TAB Magnesium Oxide 400 mg DAILY PO 12/06/24 10:00 12/06/24 08:50 400 MG Thiamine HCl 100 mg DAILY PO 12/06/24 10:00 12/06/24 08:49 100 MG laboratory and microbiology Laboratory Tests 12/06/24 07:12 Test 12/06/24 07:12 Range/Units Serum Glucose 99 74-106 mg/dL Microbiology Date/Time Source Procedure Growth Status 12/04/24 05:29 Blood Blood Culture - Preliminary NO GROWTH AFTER 48 HOURS OF INCUBATION. Resulted Problem List/Assessment/Plan Problem List/Assessment/Plan AFEBRILE VSS ABD SOFT NON TENDER NO ACTIVE BLEED ALLOW DIET IVORY Plan discussed with: Other MIESHA AGUILAR MD Dec 06, 2024 11:47
[2024-12-06] MEDS ORDERED: SUCR1SUS26 PO (15:40)
[2024-12-06] MEDS ORDERED: PANT40T PO (15:40)
--- NOTE | 2024-12-06 17:07 | DVHDSRES ---
Discharge Summary Date of Admission Resident Creating Document: FORREST SENIOR RESIDENT Dec 04, 2024 at 06:37 Date of Discharge: Dec 06, 2024 Labs/Diagnostic Data: Laboratory Results Test 12/06/24 07:12 12/05/24 14:00 12/05/24 07:49 12/04/24 13:44 White Blood Count 6.6 10^3/uL (4.4-10.8) Red Blood Count 5.45 10^6/uL (4.5-5.90) Hemoglobin 17.2 g/dL (13.5-17.5) Hematocrit 48.3 % (41.0-53.0) Mean Corpuscular Volume 88.7 fL (80.0-100.0) Mean Corpuscular Hemoglobin 31.6 pg (28.0-32.0) Mean Corpuscular Hemoglobin Concent 35.7 g/dL (32.0-36.0) Red Cell Distribution Width 14.9 % (11.8-14.3) Platelet Count 219 10^3/uL (140-450) Mean Platelet Volume 8.6 fL (6.9-10.8) Neutrophils (%) (Auto) 57.3 % (37.0-80.0) Lymphocytes (%) (Auto) 35.5 % (10.0-50.0) Monocytes (%) (Auto) 3.9 % (0.0-12.0) Eosinophils (%) (Auto) 2.7 % (0.0-7.0) Basophils (%) (Auto) 0.6 % (0.0-2.0) Neutrophils # (Auto) 3.8 10 ^3/uL (1.6-8.6) Lymphocytes # (Auto) 2.3 10 ^3/uL (0.4-5.4) Monocytes # (Auto) 0.3 10 ^3/uL (0-1.3) Eosinophils # (Auto) 0.2 10 ^3/uL (0-0.8) Basophils # (Auto) 0 10 ^3/uL (0-0.2) Nucleated Red Blood Cells 0.1 % Sodium Level 140 mmol/L (136-145) Potassium Level 3.4 mmol/L (3.5-5.1) Chloride Level 104 mmol/L (98-107) Carbon Dioxide Level 25 mmol/L (20-31) Anion Gap 11 (5-15) Blood Urea Nitrogen 8 mg/dL (9-23) Creatinine 0.79 mg/dL (0.700-1.30) Glomerular Filtration Rate Calc 126 mL/min (>90) BUN/Creatinine Ratio 10.1 (10.0-20.0) Serum Glucose 99 mg/dL (74-106) Calcium Level 9.0 mg/dL (8.7-10.4) Phosphorus Level 4.3 mg/dL (2.4-5.1) Total Bilirubin 0.6 mg/dL (0.2-1.0) Aspartate Amino Transferase (AST) 67 U/L (13-40) Alanine Aminotransferase (ALT) 141 U/L (7-40) Alkaline Phosphatase 80 U/L (46-116) Total Protein 6.6 g/dL (5.7-8.2) Albumin 4.5 g/dL (3.2-4.8) Lipase 63 U/L (12-53) Prothrombin Time 11.6 sec (9.3-11.8) Prothrombin Time INR 1.11 (0.9-1.15) Activated Partial Thromboplast Time 27.3 SEC (24.5-34.5) Magnesium Level 2.1 mg/dL (1.6-2.6) Lactic Acid Level 1.5 mmol/L (0.4-2.0) Test 12/04/24 07:26 12/04/24 05:27 12/04/24 04:14 Plasma/Serum Blood Alcohol 78.3 mg/dL (<10) Troponin I High Sensitivity < 3 ng/L (</=54) Urine Color Light-yellow (Yellow) Urine Clarity Clear (Clear) Urine pH 6.5 (5.0-9.0) Urine Specific [place] > 1.050 (1.001-1.035) Urine Protein Negative (Negative) Urine Ketones 1+ (Negative) Urine Blood Negative /uL (Negative) Urine Nitrite Negative (Negative) Urine Bilirubin Negative (Negative) Urine Urobilinogen Normal mg/dL (Negative) Urine Leukocyte Esterase Negative /uL (Negative) Urine RBC 4 /hpf (0 - 3) Urine Microscopic WBC < 1 /HPF (0-3) Urine Squamous Epithelial Cells Few /hpf (<5) Urine Bacteria None seen /hpf (None Seen) Urine Glucose Normal mg/dL (Normal) Urine Opiates Screen Neg (NEGATIVE) Urine Fentanyl Screen Neg (NEGATIVE) Urine Barbiturates Screen Neg (NEGATIVE) Urine Phencyclidine Screen Neg (NEGATIVE) Urine Amphetamines Screen Neg (NEGATIVE) Urine Benzodiazepines Screen Neg (NEGATIVE) Urine Cocaine Screen Neg (NEGATIVE) Urine Cannabinoids Screen Neg (NEGATIVE) Other Laboratory Tests 12/06/24 07:12 Brief Hx & Hospital Course: Brief history: 23-year-old czech speaking male with no past medical or surgical history came with complaint of vomiting blood last night yesterday around 10:00 p.m. he had 1 episode of vomiting. He denies passing out or abdominal pain. The patient says he has been drinking heavily for the past month. There was no associated fever chest pain or shortness of breath. Please evaluate for extent of function & needs. He reported he is going to rehabilitation after discharge. Hospital course: Patient was admitted along the lines of bloody emesis due to possible esophageal tear/peptic ulcer/gastritis. His toxicology screen was positive for alcohol. CT abdomen revealed hepatic steatosis. He was started on supportive management, pain management, Protonix. GI was consulted for EGD. EGD revealed no active bleeding, 1. 3 cm sliding-type hiatal hernia with the acute grade B linear erosive esophagitis with linear ulcers extending into the distal 8 cm of the esophagus, Mild gastritis otherwise normal examination up to the 2nd and 3rd part of the duodenum with no active bleeding at this time. With supportive management, he is stabilized. His vitals have stabilized. He will be discharged on oral Protonix, Carafate and we will closely follow-up with PCP. Discharge diagnosis: Intractable abdominal pain and hematemesis due to Possible Esophageal tear/Peptic ulcer/Gastritis Gastritis, likely due to alcohol use disorder Alcohol use disorder Hepatic steatosis Sliding hiatal hernia Discharge plan Please follow with PCP in 1 week Continue Pantoprazole Sodium Sesquihydr (Pantoprazole Sodium) 40 Mg Tab daily for 4 weeks Continue Sucralfate (Carafate Susp) 1 Gm/10 Ml Ss twice daily for 4 weeks Discontinued Omeprazole (Gnp Omeprazole) 20 Mg Tab Condition at Discharge: Stable Final Diagnosis/Problems List Intractable abdominal pain and hematemesis due to Possible Esophageal tear/Peptic ulcer/Gastritis Gastritis, likely due to alcohol use disorder Alcohol use disorder Hepatic steatosis Sliding hiatal hernia Discharge Disposition: REHAB Discharge Instruct/Medications Diet: Regular Activity: No Restrictions, As Tolerated Follow Up/Referral: Follow-up with PCP in 1 week Medications: Continue home medications New Medications: Pantoprazole Sodium Sesquihydr (Pantoprazole Sodium) 40 Mg Tab 40 MG PO DAILY for 30 Days, #30 TAB 0 Refills Sucralfate (Carafate Susp) 1 Gm/10 Ml Ss 1 GM PO BID for 30 Days, #60 ML Discontinued Medications: Omeprazole (Gnp Omeprazole) 20 Mg Tab 1 TAB PO DAILY, #90 TAB 1 Refill Care Plan: Please follow with PCP in 1 week Continue Pantoprazole Sodium Sesquihydr (Pantoprazole Sodium) 40 Mg Tab daily for 4 weeks Continue Sucralfate (Carafate Susp) 1 Gm/10 Ml Ss twice daily for 4 weeks Discontinued Omeprazole (Gnp Omeprazole) 20 Mg Tab Scheduled Pantoprazole Sodium Sesquihydr (Pantoprazole Sodium), 40 MG PO DAILY Sucralfate (Carafate Susp), 1 GM PO BID Discontinued Medications Omeprazole (Gnp Omeprazole), 1 TAB PO DAILY, (Reported) Discharge Statement: "Patient was advised to return to the ER or call 911 if any headaches, dizziness, shortness of breath, chest pain, abdominal pain, bleeding, fevers, or worsening of medical condition. Patient was counseled about treatment plan, medications, possible side effects, patientverbalized understanding. All questions were answered to the best of my ability. This discharge took greater then 30 minutes in planning, reviewing documentation, counseling the patient, and discussing with other team members." ASSESSMENT ASSESSMENT Assessment Intractable abdominal pain, likely due to esophageal tear/gastritis/peptic ulcer Date of Service: Dec 06, 2024 Billing Provider: PIPER CHAVEZ MD Common Visit Codes: 39309-LCU/OBS DISCH DAY >30min LISSET MURILLO RESIDENT Dec 06, 2024 17:07 PIPER CHAVEZ MD Dec 08, 2024 21:16
== END 2024-12-06 23:12 | disposition home or self-care (01) | DRG 378 ==
LOC: ER 01:17 → OVERFLOW 06:37 → WEST WING 23:55
PROVIDERS: ADMIT Student in an Organized Health Care Education/Training Program; ATTEND Nurse Practitioner Family
PROC: 0DB68ZX Excision of Stomach, Via Natural or Artificial Opening Endoscopic, Diagnostic (ICD-10-PCS; 2024-12-05)
PROC: 0DB58ZX Excision of Esophagus, Via Natural or Artificial Opening Endoscopic, Diagnostic (ICD-10-PCS; 2024-12-05)
PROC: 0DB98ZX Excision of Duodenum, Via Natural or Artificial Opening Endoscopic, Diagnostic (ICD-10-PCS; principal; 2024-12-05 16:08)
DX: K29.21 Alcoholic gastritis with bleeding (principal); E87.29 Other acidosis; K22.10 Ulcer of esophagus without bleeding; K27.4 Chronic or unspecified peptic ulcer, site unspecified, with hemorrhage; E86.0 Dehydration; E88.89 Other specified metabolic disorders; K44.9 Diaphragmatic hernia without obstruction or gangrene; E11.9 Type 2 diabetes mellitus without complications; R74.01 Elevation of levels of liver transaminase levels; K76.0 Fatty (change of) liver, not elsewhere classified
CPT/HCPCS: 36415; 71045; 74177; 76705; 80053; 80307; 80320; 81001; 83605; 83690; 83735; 84100; 84484; 85025; 85610; 85730; 86850; 86900; 86901; 87040; 96361; 96365; G0378; J2003; J2470; J2543; J2704; J7060